=== PATIENT | male | born 1930 ===

== ENCOUNTER 2017-02-12 10:41 | Emergency (ER) | payer MEDICARE, BC ==
[2017-02-12 10:41] VITALS: BMI 27.7
[2017-02-12 11:31] VITALS: BP 162/77; PULSE 77; RESP 18; TEMP 98.2; O2SAT 99
--- NOTE | 2017-02-12 11:41 | ED PDOC ---
Arrival/HPI - General Chief Complaint: ENT Problem Time Seen by Provider: 02/12/17 11:28 Historian: Patient - History of Present Illness Narrative History of Present Illness (Text): 02/12/17 11:25 A 86 year old male, with no significant past medical history, presents to the emergency department complaining of left ear pain. Patient reports symptom has been ongoing for 1 week. Notes when using Q-tips to clean his ears, he notices discharge occurring. Patient denies of any fever, sore throat, or any other complaints. PMD: Dr. 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) - Renal Hx Renal Disorder: Yes (URETERAL STONE 2013) - Endocrine/Metabolic Hx Endocrine Disorders: Yes (BORDERLINE DM) Hx Diabetes Mellitus Type 2: Yes - Hematological/Oncological Hx Blood Disorders: No - Integumentary Other/Comment: left cataract extraction x2 a year ago - Musculoskeletal/Rheumatological Hx Falls: No - Gastrointestinal Hx Gastrointestinal Disorders: No - Genitourinary/Gynecological Hx Genitourinary Disorders: Yes Hx Prostate Problems: Yes (BPH) - Psychiatric Hx Psychophysiologic Disorder: No Hx Substance Use: No Other/Comment: USED TO SMOKED 2 PPD OF CIGARETTES,USED TO DRINK SOCIALLY. - Surgical History Hx Appendectomy: Yes Hx Cholecystectomy: Yes Hx Open Heart Surgery: Yes (bypass) Other/Comment: CRANIOTOMY REMOVAL OF MENINGIOMA 2004,CATARACT EXTRACTION WITH LENS IMPLANT. - Anesthesia Hx Anesthesia Reactions: No Hx Malignant Hyperthermia: No - Suicidal Assessment Feels Threatened In Home Enviroment: No Family/Social History - Physician Review Nursing Documentation Reviewed: Yes Family/Social History: No Known Family HX Smoking Status: Former Smoker Hx Alcohol Use: Yes (H/O.) Hx Substance Use: No Hx Substance Use Treatment: No Allergies/Home Meds Allergies/Adverse Reactions: Allergies adhesive Allergy (Verified 02/12/17 11:31) RASH ibuprofen Allergy (Verified 02/12/17 11:31) RASH Home Medications: Home Meds Medication Instructions Recorded Confirmed Albuterol 0.5% [Albuterol 0.5% 1 inh INH PRN PRN 07/23/15 07/23/15 Inhal Crystal (2.5 mg/0.5 ml) UD] Albuterol HFA [Ventolin HFA 90 1 inh INH PRN PRN 07/23/15 07/23/15 mcg/actuation (8 g)] Losartan Potassium [Cozaar] 50 mg PO DAILY 07/23/15 07/23/15 Review of Systems - Physician Review All systems were reviewed & negative as marked: Yes - Review of Systems Constitutional: absent: Fevers Eyes: absent: Vision Changes ENT: Other (left ear pain and clear discharge when cleaning with Q-tips). absent: Tinnitus, TMJ Pain, Voice Changes, Sore Throat, Rhinorrhea, Sinus Congestion Cardiovascular: absent: Chest Pain Gastrointestinal: absent: Abdominal Pain, Constipation, Diarrhea, Nausea, Vomiting Neurological: absent: Headache, Dizziness, Focal Weakness, Gait Changes, Speech Changes, Facial Droop, Disequilibrium Physical Exam Vital Signs Reviewed: Yes Vital Signs Temp Pulse Resp BP Pulse Ox 02/12/17 11:28 98.2 F 77 18 162/77 H 99 Temperature: Afebrile Blood Pressure: Hypertensive Pulse: Regular Respiratory Rate: Normal Appearance: Positive for: Well-Appearing, Non-Toxic, Comfortable Pain Distress: None Mental Status: Positive for: Alert and Oriented X 3 - Systems Exam Head: Present: Atraumatic, Normocephalic Pupils: Present: PERRL Extroacular Muscles: Present: EOMI Conjunctiva: Present: Normal Ears: Present: Fluid (clear discharge to left ear), TM Perf (left ear), Other ( right ear normal examination, L ear: no mastoid tenderness, to pinna tenderness) Mouth: Present: Moist Mucous Membranes Pharnyx: No: ERYTHEMA, EXUDATE Nose (External): Present: Atraumatic Nose (Internal): Present: Normal Inspection Neck: Present: Normal Range of Motion Respiratory/Chest: Present: Clear to Auscultation, Good Air Exchange. No: Respiratory Distress, Accessory Muscle Use Cardiovascular: Present: Regular Rate and Rhythm, Normal S1, S2. No: Murmurs Abdomen: Present: Normal Bowel Sounds. No: Tenderness, Distention, Peritoneal Signs Back: Present: Normal Inspection Upper Extremity: Present: Normal Inspection. No: Cyanosis, Edema Lower Extremity: Present: Normal Inspection. No: Edema Neurological: Present: GCS=15, CN II-XII Intact, Speech Normal Skin: Present: Warm, Dry, Normal Color. No: Rashes Psychiatric: Present: Alert, Oriented x 3, Normal Insight, Normal Concentration Medical Decision Making ED Course and Treatment: 02/12/17 11:30 Impression: 86 year old male with left ear pain. Physical exam shows left ear TM perforation and clear discharge; no external tenderness; right ear normal examination. Afebrile and well appearing. Will treat for otitis externa. Due to ?media with perforation vs traumatic perforation, will treat with antibiotics in addition to dc with drops. Patient was counseled on importance of following up with ENT. Instructed not to put qtips in his ear. Prior Visits: Notes and results from previous visits were reviewed. Patient was last seen in the emergency department on 07/23/2015 for dyspnea. Patient was admitted. Progress Notes: 02/12/17 11:35 On re-evaluation, patient feels better and is in no acute distress. I have discussed the results and plan with the patient, who expresses understanding. Patient in agreement with plan to be discharged home. Patient is stable for discharge. Patient was instructed to follow up with physician or return if symptoms worsen or new concerning symptoms arise. - Scribe Statement The provider has reviewed the documentation as recorded by the Tereza Ramsey Provider Scribe Attestation: All medical record entries made by the Scribe were at my direction and personally dictated by me. I have reviewed the chart and agree that the record accurately reflects my personal performance of the history, physical exam, medical decision making, and the department course for this patient. I have also personally directed, reviewed, and agree with the discharge instructions and disposition. Disposition/Present on Arrival - Present on Arrival Any Indicators Present on Arrival: No History of DVT/PE: No History of Uncontrolled Diabetes: No Urinary Catheter: No History of Decub. Ulcer: No History Surgical Site Infection Following: None - Disposition Have Diagnosis and Disposition been Completed?: Yes Diagnosis: Acute otitis media with perforation, Perforation of left tympanic membrane Disposition: HOME/ ROUTINE Disposition Time: 11:35 Patient Plan: Discharge Patient Problems: Current Active Problems Problem Status Onset Acute otitis media with perforation Acute Condition: GOOD Discharge Instructions (ExitCare): Otitis Media (ED), Otitis Externa (ED) Additional Instructions: Follow-up with PMD within 2 days. Return to ED if condition worsens. Take full course of antibiotics and drops. Motrin for pain. Prescriptions: Amoxicillin 875 mg PO BID #20 tablet Ofloxacin Otic 0.3% [Floxin 0.3% Otic Soln] 5 drop BID #1 bottle Referrals: Atul Horton DO [Staff Provider] - Follow up with primary
== END 2017-02-12 12:00 | disposition home or self-care (01) ==
LOC: ED 10:41
DX: H66.012 Acute suppurative otitis media with spontaneous rupture of ear drum, left ear (principal); Z87.891 Personal history of nicotine dependence